=== PATIENT | male | born 1980 | race Caucasian/White ===

== ENCOUNTER 2020-07-18 10:42 | Emergency (ER) | payer OTHER ==
[2020-07-18 11:07] VITALS: TEMP 99; BMI 35.5
--- OUTSIDE RECORDS SUMMARY | 2020-07-18 11:10 | XMS ---
:1980 Author [facility] Support Name Relationship Address Phone SE Unavailable Unavailable Unavailable Re-disclosure Warning The records that you are about to access may contain information from federally- assisted alcohol or drug abuse programs. If such information is present, then the following federally mandated warning applies: This information has been disclosed to you from records protected by federal confidentiality rules (42 CFR part 2). The federal rules prohibit you from making any further disclosure of this information unless further disclosure is expressly permitted by the written consent of the person to whom it pertains or as otherwise permitted by 42 CFR part 2. A general authorization for the release of medical or other information is NOT sufficient for this purpose. The Federal rules restrict any use of the information to criminally investigate or prosecute any alcohol or drug abuse patient.The records that you are about to access may contain highly sensitive health information, the redisclosure of which is protected by Article 27-F of the [facility] Public Health law. If you continue you may haveaccess to information: Regarding HIV / AIDS; Provided by facilities licensed or operated by the [facility] Office of Mental Health; or Provided by the [facility] Office for People With Developmental Disabilities. If such information is present, then the following [facility] mandated warning applies: This information has been disclosed to you from confidential records which are protected by state law. State law prohibits you from making any further disclosure of this information without the specific written consent of the person to whom it pertains, or as otherwise permitted by law. Any unauthorized further disclosure in violation of state law may result in a fine or care home sentence or both. A general authorization for the release of medical or other information is NOT sufficient authorization for further disclosure. Insurance Providers Payer name Policy type Policy ID Covered Covered libertarian's Policy P hema / Coverage libertarian ID relationship to [employer] type [employer] SELF PAY SP INSURANCE
[2020-07-18 12:06] LABS: BASO % 0.1 % (0-2.0); HEMATOCRIT 44.6 % (35.4-49); HEMOGLOBIN 14.8 GM/dL (11.7-16.9); LYMPH % 15.9 % (8-40); MCH 27.5 pg (25.7-33.7); MCHC 33.2 g/dl (32.0-35.9); MEAN CELL VOLUME 82.8 fl (80-96); MEAN PLT VOLUME 7.7 fl (7.5-11.1); MONO % 13.2 % (3.8-10.2); NEUT % 70.8 % (42.8-82.8); PLATELET COUNT 269 K/MM3 (134-434); RBC 5.38 M/mm3 (4.00-5.60); RDW 13.3 % (11.9-15.9); WHITE BLOOD COUNT 8.4 K/mm3 (4.0-10.0)
--- NOTE | 2020-07-18 12:12 | PDOC ---
Documentation entered by Kourtney Spaulding SCRIBE, acting as scribe for Glynn Olsen MD. Glynn Olsen MD: This documentation has been prepared by the Jasson nagy Brenda, SCRIBE, under my direction and personally reviewed by me in its entirety. I confirm that the documentation accurately reflects all work, treatment, procedures, and medical decision making performed by me. History of Present Illness - General Chief Complaint: CVA/TIA Stated Complaint: RT SIDE NUMBNESS Time Seen by Provider: 07/18/20 11:12 History Source: Patient Exam Limitations: No Limitations - History of Present Illness Initial Comments: 07/18/20 11:17 The patient is a 39 year old male with no significant PMH who presents to the emergency department for evaluation of right-sided weakness for the past 24 hours. Patient states that upon waking up yesterday morning he had difficulty raising his right arm and ambulating due to right lower extremity weakness. Patient repots he was fearful of coming to the hospital, causing his delay in arrival coming in today. The patient denies recent cough or fever. Denies family history of stroke. Denies sick contacts. The patient denies chest pain, shortness of breath, headache and dizziness. Denies fever, chills, nausea, vomiting, diarrhea and constipation. Denies dysuria, frequency, urgency and hematuria. Allergies: NKA Past surgical history: appendectomy 10 yrs ago Social history: Social alcohol use PCP: None Past History - Medical History Allergies/Adverse Reactions: Allergies Allergy/AdvReac Type Severity Reaction Status Date / Time No Known Allergies Allergy Verified 07/18/20 10:54 Home Medications: Ambulatory Orders NK [No Known Home Medication] 07/18/20 COPD: No - Psycho-Social/Smoking History Smoking History: Never smoked Have you smoked in the past 12 months: No - Substance Abuse Hx (Audit-C & DAST Scrn) How often the patient has a drink containing alcohol: Never Score: In Men: 4 or > Positive; In Women: 3 or > Positive: 0 Screen Result (Pos requires Nsg. Audit-10AR): Negative In the last yr the pt used illegal drug/Rx for NonMed reason: No Score: Yes response is considered Positive: 0 Screen Result (Positive result requires Nsg. DAST-10): Negative Review of Systems - Review of Systems Able to Perform ROS?: Yes Comments:: 07/18/20 11:42 CONSTITUTIONAL: No fever, no chills, no fatigue EYES: No visual changes ENT: No ear pain, no sore throat CARDIOVASCULAR: No chest pain, no palpitations RESPIRATORY: No cough, no SOB GI: No abdominal pain, no nausea, no vomiting, no constipation, no diarrhea GENITOURINARY: No dysuria, no frequency, no hematuria MUSKULOSKELETAL: No backpain, no joint pain, no myalgias SKIN: No rash NEURO: (+) Right sided extremity weakness *Physical Exam - Vital Signs Last Vital Signs Temp Pulse Resp BP Pulse Ox 99 F 105 H 18 138/87 99 07/18/20 10:55 07/18/20 10:55 07/18/20 10:55 07/18/20 10:55 07/18/20 10:55 - Physical Exam 07/18/20 12:06 EXAMINATION CONSTITUTIONAL: Well-appearing; obesse; in no apparent distress HEAD: Normocephalic; atraumatic EYES: PERRL; EOM intact ENMT: External appears normal; + r lower facial assymetry wtih flattening of the nasolabial fold, lingual deviation to the right, uvula deviation to the left NECK: Supple; non-tender; no bruits CARD: Normal S1, S2; 3/6 sys murmur with thrill, no rubs, or gallops RESP: Normal chest excursion with respiration; breath sounds clear and equal bilaterally; no wheezes, rhonchi, or rales ABD: Soft, non-distended; non-tender; no palpable organomegaly, no palpable hernias EXT: Normal ROM in all four extremities; non-tender to palpation; distal pulses intact SKIN: Warm, dry, no rash NEURO: cn ii-xii grossly inact (see cn vii above); motor: LUE: 5/5, RUE: 3/5; LLE: 5/5, RLE: 4/5; babinsky positive on the right; sensation instact (fine touch, pain, proprioception) b/l; gait deffered. 07/18/20 12:46 NIH Stroke Scale - Last Known Well Date/Time & Onset Date Last Known Well: 07/17/20 Time Last Known Well: 07:00 - Initial Evaluation Level of consciousness: Alert Ask patient the month and their age: Answers both correctly Ask patient to open & close eyes; make fist and let go: Obeys both correctly Best gaze (horizontal eye movement): Normal Visual field testing: No visual field loss Facial paresis (Show teeth/raise eyebrows/close eyes tight): Minor paralysis (flattened nasolabial fold, asymmetry on smiling) Motor Function: Left Arm: Normal Motor Function: Right Arm: Some effort against gravity Motor Function: Left Leg: Normal (extends leg 30 degrees for 5 seconds without drift) Motor Function: Right Leg: Drift Limb Ataxia: Present in two limbs Sensory(Use pinprick test arms,legs,trunk,face/side to side): Normal Best language (Describe picture, name items, read sentences): No Aphasia Dysarthria (read several words): Normal articulation Extinction and Inattention: No abnormality - Total Score NIH Stroke Scale Score: 6 tPA Exclusion Checklist 0-3hr - Time Elapsed Date last known well: 07/17/20 Time last known well: 07:00 Elaspsed time: 1 Day(s) and 7 Hour(s) and 24 Minutes - Thrombolytic Therapy Candidate Is the patient eligible for Thrombolytic Therapy?: No - Exclusion Criteria 0-3hr SBP greater than 185 or DBP greater than 110mmHg despite tx: No Recent IC/spinal surgery,head trauma or stroke w/in last 3mo: No Hx of previous IC hemorrhage, IC neoplasm, AVM or aneurysm: No Active internal bleeding: No Blding diathesis(low plt ct, inc PTT,INR>1.7 or use of NOAC): No Symptoms suggest subarachnoid hemorrhage: No CT demonstrates multilobar infarct(>1/3 cerebral hemiphere): No Arterial puncture at noncompressible site in previous 7 days: No Blood glucose concentration less than 50mg/dL (2.7mmol/L): No - Relative Exclusion Criteria 0-3h Care team unable to determine eligibility: No IV/IA thrombolysis/thrombectomy @ another hosp prior arrival: No Life expectancy <1yr/severe co-morbid illness/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 OF 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 on admit: No : No Patient/family refused: No Stroke severity too mild (non-disabling): No Recent acute [place] (w/in previous 3 months): No Seizure at onset with postictal residual neuro impairments: No Major surgery or serious trauma w/in previous 14 days: No Recent GI or hemorrhage (w/in previous 21 days): No - Ineligibility reason(s) Reasons No tPA given: Outside of window - delayed arrival Heart Score/ECG Review - ECG Impressions Comment:: 07/18/20 12:48 94 bpm Normal sinus rhythm righward axis borderline EKG Critical Care Time/MDM Note - Medical Decision Making Note: 07/18/20 11:56 Patient is a 39-year-old male who presents to the ER with right-sided hemiparesis of more than 24 hours duration. Patient is not a candidate for TPA nor thrombectomy. NIH stroke scale was noted to be 6. Will obtain CT of head/carotid Dopplers. If no evidence of hemorrhage, will administer aspirin. Will consult neurology. Will admit. 07/18/20 12:[address] Alexandre, acute/subacute left basal ganglia infarct noted. Will administer aspirin. Case discussed with Dr. Grace of neurology. Agrees with plan of care. 07/18/20 14:24 CT of chest shows multiple peripherally based patchy pneumatic 2D echocardiogram was noted for infiltrates. High gradient across the tricuspid valve but no c lear vegetations were seen. Case discussed with Dr. Carballo of cardiology. He recommends transfer to [facility] for [place] and higher level of care. Patient accepted to ED at [facility]. Case discussed with Dr. Benítez. Discharge - Discharge Information Problems reviewed: Yes Clinical Impression/Diagnosis: Cerebrovascular accident (CVA) Qualifiers: CVA mechanism: unspecified Qualified Code(s): I63.9 - Cerebral infarction, unspecified Pneumonia Qualifiers: Pneumonia type: due to unspecified organism Laterality: bilateral Lung loc ation: unspecified part of lung Qualified Code(s): J18.9 - Pneumonia, unspecified organism Condition: Fair Disposition: TRANSFER ACUTE CARE/OTHER HOSP - Follow up/Referral - Patient Discharge Instructions - Post Discharge Activity - Transfer to Acute Care Facility Receiving Facility Name: [facility] Accepting Physician:: Dr. benítez
[2020-07-18 12:13] LABS: INR 1.01 (0.83-1.09); PROTHROMBIN TIME (PATIENT) 12.4 SEC (9.7-13.0)
[2020-07-18 12:16] LABS: ACTIVATED PTT 33.9 SECONDS (25.2-36.5)
[2020-07-18 12:39] LABS: CHLORIDE 98 mmol/L (98-107); POTASSIUM 4.5 mmol/L (3.5-5.1); SODIUM 130 mmol/L (136-145)
[2020-07-18 12:42] LABS: ALBUMIN 3.6 g/dl (3.4-5.0); ANION GAP 9 MMOL/L (8-16); BLOOD UREA NITROGEN 11.6 mg/dL (7-18); CALCIUM 8.6 mg/dL (8.5-10.1); CO2 23 mmol/L (21-32)
[2020-07-18 12:43] LABS: GLUCOSE,RANDOM 213 mg/dL (74-106)
[2020-07-18 12:45] LABS: SGOT/AST 55 U/L (15-37); SGPT/ALT 43 U/L (13-61)
[2020-07-18 12:46] LABS: CHOLESTEROL 203 mg/dL (50-200); CREATININE 0.6 mg/dL (0.55-1.3); TRIGLYCERIDES 161 mg/dL (0-150)
[2020-07-18 12:47] LABS: BILIRUBIN,TOTAL 0.5 mg/dL (0.2-1); LDL CHOLESTEROL (ONLY SJRH) 137 mg/dL (5-100); TOT PROT 8.4 g/dl (6.4-8.2)
[2020-07-18] MEDS ORDERED: ASPIRIN 325 MG TABLET PO ONE (12:47)
[2020-07-18 12:48] LABS: ALK PHOS 85 U/L (45-117); HDL CHOLESTEROL 47 mg/dL (40-60)
[2020-07-18] MEDS ORDERED: VANCOMYCIN HCL 1,500 MG in DEXTROSE 5%-WATER - 500 ML IVPB ONE (13:00)
[2020-07-18] MEDS ORDERED: CEFTRIAXONE 2,000 MG in DEXTROSE 5%-WATER - 50 ML IVPB ONE (13:01)
[2020-07-18] MEDS ORDERED: ASPIRIN 325 MG ENTERIC COATED TABLET (FP) ONE (13:14)
[2020-07-18] MEDS ORDERED: CEFTRIAXONE 2 GM in DEXTROSE 5%-WATER 100 ML IVPB ONE (13:15)
--- NOTE | 2020-07-18 13:34 | CON.CARD ---
Consult Consult Specialty:: Cardiology Referred by:: ER Reason for Consultation:: concern for possible endocarditis - History of Present Illness Chief Complaint: R sided weakness History of Present Illness: 39 year old man with no prior known pmh presented with 24hr history of R sided weakness. Pt found to have an acute/subacute L sided CVA as well as multiple b/l pulmonary infiltrates. Pt seen and examined in the ER in [facility]. Echo reviewed at bedside. Pts brother at bedside. pt states he has been feeling well. denies any symptoms prior to the R sided weakness. No fever, chills, cough. No known sick contacts. he has been working as a [employer]. No chest pain, sob, palpitations. No pnd, orthopnea, or LE edema. pt admits to etoh use but denies illegal drug use. Echo prelim is technically difficult study but no obvious intracardiac vegetations. There is an elevated gradient across the pulmonic valve of unclear significance. - History Source History Provided By: Patient, Family Member Limitations to Obtaining History: No Limitations - Smoking History Smoking history: Never smoked Have you smoked in the past 12 months: No - Social History ADL: Independent History of Recent Travel: No Home Medications - Allergies Allergies/Adverse Reactions: Allergies Allergy/AdvReac Type Severity Reaction Status Date / Time No Known Allergies Allergy Verified 07/18/20 10:54 - Home Medications Home Medications: Ambulatory Orders NK [No Known Home Medication] 07/18/20 Family Medical History Family History: Denies Review of Systems - Review of Systems Constitutional: reports: Weakness. denies: No Symptoms, Chills, Diaphoresis, Fever, Lethargy, Loss of Appetite, Malaise, Night Sweats, Unintentional Wgt. Loss, Other Eyes: reports: No Symptoms. denies: Blind Spots, Blurred Vision, Double Vision, Eye Pain, Floaters, Photophobia, Recent Change in Vision, Other HENT: denies: No Symptoms, Difficult Swallowing, Ear Discharge, Ear Pain, Epistaxis, Gingival Bleeding, Hearing Loss, Mouth Swelling, Nasal Congestion, Ocular Prosthesis, Throat Pain, Toothache, Ringing in Ears, Other Neck: denies: No Symptoms, Decreased ROM, Lumps, Pain on Movement, Stiffness, Swollen Glands, Tenderness, Other Cardiovascular: denies: No Symptoms, Chest Pain, Edema, Palpitations, Shortness of Breath, Other Respiratory: denies: No Symptoms, Cough, Exercise Intolerance, Hemoptysis, Orthopnea, PND, Snoring, SOB, SOB on Exertion, Wheezing, Other Gastrointestinal: denies: No Symptoms, Abdominal Pain, Bloating, Constipation, Diarrhea, Dysphagia, Indigestion, Melena, Nausea, Rectal Bleeding, Vomiting, Vomiting Blood, Other Genitourinary: denies: No Symptoms, Burning, Discharge, Dysuria, Flank Pain, Frequency, Hematuria, Incontinence, Lesions, Menses, Pain, Testicular Mass, Testicular Pain, Testicular Swelling, Urgency, Vaginal Bleeding, Other Breasts: denies: No Symptoms Reported, See HPI, Breast Implants, Discharge from Nipple, Lumps, Pain, Skin Changes, Other Musculoskeletal: denies: No Symptoms, Back Pain, Crepitus, Decreased ROM, Extremity Pain, Joint Pain, Joint Swelling, Muscle Pain, Muscle Cramps, Muscle Weakness, Other Integumentary: denies: No Symptoms, Blister, Bruising, Change in Color, Eczema, Erythema, Incision, Lesions, Lump, Pallor, Pruritis, Rash, Wound, Other Neurological: reports: Numbness, Weakness. denies: No Symptoms, Change in LOC, Change in Speech, Confusion, Dizziness, Headache, Incoordination, Parasthesia, Pre-Existing Deficit, Seizure, Syncope, Tremors, Unsteady Gait, Other Endocrine: denies: No Symptoms, Excessive Sweating, Flushing, Increased Hunger, Increased Thirst, Intolerance to Cold, Intolerance to Heat, Unexplained Weight Gain, Unexplained Weight Loss, Other Hematology/Lymphatic: denies: No Symptoms, Easily Bruised, Excessive Bleeding, Swollen Glands, Other Psychiatric: denies: No Symptoms, Altered Sleep Pattern, Anxiety, Depression, Hallucinations, Panic, Paranoia, Suicidal, Other Vital Signs: Vital Signs Temperature 99 F 07/18/20 10:55 Pulse Rate 96 H 07/18/20 13:19 Respiratory Rate 16 07/18/20 13:19 Blood Pressure 132/85 07/18/20 13:19 O2 Sat by Pulse Oximetry (%) 98 07/18/20 13:19 Constitutional: Yes: No Distress, Calm Eyes: Yes: Conjunctiva Clear, EOM Intact HENT: Yes: Atraumatic, Normocephalic Neck: Yes: Supple, Trachea Midline Respiratory: Yes: Regular, CTA Bilaterally. No: Rales, Rhonchi, SOB, Wheezes Gastrointestinal: Yes: Normal Bowel Sounds, Soft. No: Distention, Tenderness Cardiovascular: Yes: Regular Rate and Rhythm. No: Bradycardia, Tachycardia, Pulse Irregular, Gallop, Rub, Varicosities JVD: No Carotid Bruit: No PMI: Non-Displaced Heart Sounds: Yes: S1, S2. No: Split S2, S3, S4, Clicks, Gallop, Rub, Bruit Murmur: Yes: Systolic Murmur, Grade 3 Extremities: Yes: WNL Edema: No Peripheral Pulses WNL: Yes Peripheral Pulses: 2+ Left Doralis Pedis, 2+ Right Dorsalis Pedis Neurological: Yes: Alert, Oriented Psychiatric: Yes: Alert, Oriented - Other Data Labs, Other Data: CBC, BMP 07/18/20 11:30 07/18/20 11:30 INR, PTT INR 1.01 (0.83-1.09) 07/18/20 11:30 Troponin, BNP 07/18/20 11:30 Troponin I < 0.02 Troponin, BNP 07/18/20 11:30 Troponin I < 0.02 NSR RAD Echo: Pending, Image Reviewed Imaging - Results Chest X-ray: Report Reviewed, Image Reviewed EKG: Report Reviewed, Image Reviewed Other: Report Reviewed, Image Reviewed Assessment/Plan 39 year old man with no prior known pmh presented with 24hr history of R sided weakness. Pt found to have an acute/subacute L sided CVA as well as multiple b/l pulmonary infiltrates. Pt seen and examined in the ER in [facility]. Echo reviewed at bedside. Pts brother at bedside. pt states he has been feeling well. denies any symptoms prior to the R sided weakness. No fever, chills, cough. No known sick contacts. he has been working as a [employer]. No chest pain, sob, palpitations. No pnd, orthopnea, or LE edema. Echo prelim is technically difficult study but no obvious intracardiac vegetations. There is an elevated gradient across the pulmonic valve of unclear significance. Suspicion for endocarditis -given CVA and b/l pulmonary infiltrates -pt denies IVDU, would check utox to confirm -no fever, chills, sick contacts, WBC wnl, BCx pending -Abx started -echo was technically difficult but shows no obvious vegetations -there is an elevated gradient across the pulmonic valve of unclear significance -given high suspicion for endocarditis and therefore with presumed septic emboli would recommend transfer to tertiary care center for further evaluation and potential surgical treatment.
[2020-07-18] MEDS ORDERED: ATORVASTATIN CA 40 MG TABLET (FP) PO ONE (13:52)
[2020-07-18 14:08] LABS: EPI CELLS 10 /uL (0-25.1); HYALINE CASTS 1 /uL (0-3.1); PH,URINE 5.5 (5.0-8.0); URINE APPEARANCE CLEAR; URINE BACTERIA 28 /uL (0-1359); URINE BILIRUBIN NEGATIVE (NEGATIVE); URINE COLOR YELLOW; URINE GLUCOSE (UA) 3+ (NEGATIVE); URINE KETONE 1+ (NEGATIVE); URINE LEUK ESTERASE NEGATIVE (NEGATIVE); URINE NITRITE NEGATIVE (NEGATIVE); URINE PROTEIN 2+ (NEGATIVE); URINE RBC 3 /uL (0-23.9); URINE WBC 2 /uL (0-25.8)
[2020-07-18 14:11] LABS: COCAINE, UR NEGATIVE ng/ml (CUTOFF=300); OPIATES, URI NEGATIVE ng/ml (CUTOFF=300); URINE BARBITURATES NEGATIVE ng/ml (CUTOFF=200); URINE BENZODIAZEPINES NEGATIVE ng/ml (CUTOFF=200)
[2020-07-18 14:12] LABS: METHADONE, UR NEGATIVE ng/ml (CUTOFF=300); PHENCYCLIDINE,URINE NEGATIVE ng/ml (CUTOFF=25)
[2020-07-18 14:20] LABS: URINE AMPHETAMINES NEGATIVE ng/ml (CUTOFF=500)
--- NOTE | 2020-07-18 14:41 | ECHO ---
Name: STEVE JANE Exam:Adult Echocardiogram Study Date: 07/18/2020 01:30 PM Age: 39 yrs Height: 66 in Weight: 220 lb BSA: 2.1 m2 BP: 132/85 mmHg MMode/2D Measurements & Calculations IVSd: 1.1 cm Ao root diam: 3.0 cm LVIDd: 4.3 cm LA dimension: 3.8 cm LVIDs: 3.1 cm ACS: 2.0 cm LVPWd: 1.1 cm LVPWs: 1.3 cm EDV(Teich): 83.6 ml ESV(Teich): 38.9 ml LVOT diam: 2.1 cm LAV (MOD-bp): 59.0 ml RV S Taqueria: 11.4 cm/sec Doppler Measurements & Calculations MV E max taqueria: 73.1 cm/sec Ao V2 max: 188.7 cm/sec MV A max taqueria: 97.2 cm/sec Ao max P.2 mmHg MV E/A: 0.75 MARGARITA(V,D): 1.9 cm2 MV dec time: 0.15 sec LV V1 max P.4 mmHg PA V2 max: 322.4 cm/sec LV V1 max: 104.6 cm/sec PA max P.7 mmHg PA V2 mean: 222.3 cm/sec PA mean P.3 mmHg PA V2 VTI: 57.7 cm Med Peak E' Taqueria: 7.9 cm/sec Med E/e': 9.2 Lat Peak E' Taqueria: 7.5 cm/sec Lat E/e': 9.7 Tech Comments tds study due to patient habitus. Patient nervous and also short of breath. Procedure A two-dimensional transthoracic echocardiogram with color flow and Doppler was performed. The study w as technically difficult with many images being suboptimal in quality. The patient was in normal sinus r hythm during the exam. Left Ventricle Left ventricular systolic function is normal. Ejection Fraction = 55%. The transmitral spectral Doppl er flow pattern is suggestive of impaired LV relaxation. Right Ventricle The right ventricle is normal in size and function. Atria Normal left and right atrial size and function. Mitral Valve The mitral valve is normal. There is no mitral regurgitation noted. Tricuspid Valve The tricuspid valve is normal. No tricuspid regurgitation. Aortic Valve The aortic valve is normal in structure and function. No aortic regurgitation is present. Pulmonic Valve The pulmonic valve is not well visualized. There is an elevated gradient across the pulmonic valve wi th a peak gradient of 44 mmHg. There is no pulmonic valvular regurgitation. Great Vessels The aortic root is normal size. Pericardium/Pleura There is no pericardial effusion. This was a technically difficult study. There are no obvious vegeta tions seen; however, endocarditis cannot be rule out with this study. There is an elevated gradient across the pulmonic valve. Recommend further evaluation with [place] if clinically indicated. Interpretation Summary The study was technically difficult with many images being suboptimal in quality. Left ventricular systolic function is normal. The transmitral spectral Doppler flow pattern is suggestive of impaired LV relaxation. The right ventricle is normal in size and function. The pulmonic valve is not well visualized. There is an elevated gradient across the pulmonic valve with a peak gradient of 44 mmHg. This was a technically difficult study. There are no obvious vegetations seen; however, endocarditis cannot be rule out with this study. There is an elevated gradient across the pulmonic valve. Recommend further evaluation with [place] if clinically indicated. MD Lamberto Carballo 07/18/2020 02:41 PM
[2020-07-18] MEDS ORDERED: ATORVASTATIN CA 40 MG TABLET (FP) ONE (14:47)
--- NOTE | 2020-07-18 15:03 | EKG ---
Test Reason : Blood Pressure : / mmHG Vent. Rate : 094 BPM Atrial Rate : 094 BPM P-R Int : 142 ms QRS Dur : 098 ms QT Int : 354 ms P-R-T Axes : 047 091 033 degrees QTc Int : 442 ms NORMAL SINUS RHYTHM RIGHTWARD AXIS BORDERLINE ECG Confirmed by MD TARIQ, CHRISTOFER ([id number]) on 07/18/2020 3:02:54 PM Referred By: Confirmed By:CHRISTOFER POTTER MD
[2020-07-18 15:07] VITALS: BP 133/78; PULSE 101
== END 2020-07-18 15:10 | disposition short-term general hospital (02) ==
LOC: JER 10:42
DX: I63.9 Cerebral infarction, unspecified (principal); J18.9 Pneumonia, unspecified organism
CPT/HCPCS: 36415; 70450-TC; 71250-TC; 80053; 80061; 80307; 81003; 82550; 83721; 84484; 85025; 85610; 85730; 86850; 86900; 86901; 87040; 87086; 93005; 93010; 93306-TC; 93880-TC; 99285-25; C9803; U0003